=== PATIENT | female | born 1940 | race Caucasian/White ===

== ENCOUNTER 2018-03-07 12:11 | Emergency (ER) | payer OTHER ==
[~2018-03-07] VITALS: Ht 157.5 cm; Wt 91.6 kg
--- NOTE | 2018-03-07 12:33 | NUR ---
CALLED [facility] SPOKE WITH ROSS, EXPECTING A CALL BACK FROM [facility]
[2018-03-07 13:10] LABS: BASOPHILS # (AUTO) 0.1 /CMM (0.0-0.2); BASOPHILS % (AUTO) 1.3 % (0.0-2.0); EOSINOPHILS % (AUTO) 2.1 % (0.0-6.0); HEMATOCRIT 32 % (33-45); HEMOGLOBIN 10.3 g/dL (11.5-14.8); LYMPHOCYTES # (AUTO) 0.8 /CMM (0.8-4.8); LYMPHOCYTES % (AUTO) 7.1 % (20.0-44.0); MEAN CORPUSCULAR HGB CONC 33 g/dl (31.0-36.0); MEAN CORPUSCULAR VOLUME 79 fL (82-100); MONOCYTES # (AUTO) 1.1 /CMM (0.1-1.30); NEUTROPHILS # (AUTO) 8.4 /CMM (1.8-8.9); NEUTROPHILS % (AUTO) 79.5 % (43.0-81.0); PLATELET COUNT (AUTO) 568 /CMM (150-450); RDW COEFFICIENT OF VARIATION 16.6 (11.5-15.0); RED BLOOD CELL COUNT(AUTO) 4.03 MIL/uL (4.0-5.2); WHITE BLOOD COUNT (AUTO) 10.6 K/uL (4.3-11.0)
--- NOTE | 2018-03-07 13:10 | NUR ---
DR CARPENTER FROM [facility] CALLED, ON THE PHONE WITH DR ODEN.
[2018-03-07 13:16] LABS: CALCIUM, SERUM 10.1 mg/dL (8.5-10.1); CARBON DIOXIDE 24 mmol/L (21-32); CHLORIDE 104 mmol/L (98-107); GLUCOSE 123 mg/dL (74-106); POTASSIUM 4.1 mmol/L (3.5-5.1); SODIUM SERUM 139 mmol/L (136-145); UREA NITROGEN, BLOOD 14 mg/dL (7-18)
[2018-03-07 13:40] VITALS: BP 141/88
--- NOTE | 2018-03-07 13:51 | NUR ---
YAMILA FROM [facility] CALLED WITH TX INFO PATIENT WILL BE GOING TO [facility] ER [phone] DR TREVINO BLS [id number]
[2018-03-07] MEDS ORDERED: MORPHINE SULFATE INJ 2 MG/ML DISP.SYRIN ONE (14:22)
--- NOTE | 2018-03-07 14:27 | NUR ---
REPORT GIVEN TO [facility] FOR TRANSPORT TO [facility].
[2018-03-07] MEDS ORDERED: MORPHINE SULFATE INJ 10 MG/ML DISP.SYRIN IM ONE (14:30)
[2018-03-07] MEDS ORDERED: METOPROLOL TARTRATE 25 MG TABS (14:33)
[2018-03-07] MEDS ORDERED: PREDNISONE 5 MG (14:33)
[2018-03-07] MEDS ORDERED: ACETAMINOPHEN (14:33)
[2018-03-07] MEDS ORDERED: OXYCODONE (14:33)
== END 2018-03-07 14:41 | disposition short-term general hospital (02) ==
LOC: ER 12:15
DX: M54.9 Dorsalgia, unspecified (principal); G89.29 Other chronic pain; I10 Essential (primary) hypertension; Z98.890 Other specified postprocedural states; Z88.1 Allergy status to other antibiotic agents
CPT/HCPCS: 36415; 80048-TC; 85025-TC; A4606; J2270; Z7610